=== PATIENT | male | born 1970 | race Caucasian/White ===

== ENCOUNTER 2016-06-10 21:14 | Emergency (ER) | payer SELFPAY ==
[~2016-06-10] VITALS: Ht 180.3 cm; Wt 74.3 kg
[2016-06-10] MEDS ORDERED: HYDROcodone/APAP 5/325 TABLET ONE (22:00)
[2016-06-10] MEDS ORDERED: IBUPROFEN 200 MG TABLET PO ONE (22:00)
[2016-06-10] MEDS ORDERED: IBUPROFEN 200 MG TABLET ONE (22:00)
[2016-06-10] MEDS ORDERED: HYDROcodone/APAP 5/325 TABLET PO ONE (22:00)
[2016-06-10] MEDS ORDERED: DIPH,PERTUSS(ACELL),TET VAC/PF 0.5 ML IM-VACC ONE ×2 (23:09→23:30)
[2016-06-10 23:52] VITALS: BP 162/108
== END 2016-06-10 23:54 | disposition home or self-care (01) ==
LOC: ED 22:50
DX: S62.315A Displaced fracture of base of fourth metacarpal bone, left hand, initial encounter for closed fracture (principal); S62.317A Displaced fracture of base of fifth metacarpal bone, left hand, initial encounter for closed fracture; S50.02XA Contusion of left elbow, initial encounter; S60.212A Contusion of left wrist, initial encounter; S60.222A Contusion of left hand, initial encounter; V29.69XA Unspecified motorcycle rider injured in collision with other motor vehicles in traffic accident, initial encounter; Y93.89 Activity, other specified; Y92.410 Unspecified street and highway as the place of occurrence of the external cause; Y99.8 Other external cause status; Z23 Encounter for immunization
CPT/HCPCS: 29125; 90471; 90715